=== PATIENT | male | born 1975 | race Caucasian/White ===

== ENCOUNTER 2017-10-24 14:27 | Emergency (ER) | payer OTHER ==
[2017-10-24 16:46] LABS: ADD MAN DIFF? NO
[2017-10-24 16:50] LABS: BASOPHIL # 0.1 10^3/ul (0.0-0.1); BASOPHILS % 0.6 % (0.0-2.0); EOSINOPHILS # 0.1 10^3/ul (0.0-0.5); EOSINOPHILS % 0.7 % (0.0-7.0); HEMATOCRIT 42.3 % (42.0-52.0); HEMOGLOBIN 14.6 g/dl (14.0-18.0); LYMPHOCYTES # 2.4 10^3/ul (0.8-2.9); LYMPHOCYTES % 27.2 % (15.0-51.0); MEAN CORPUSCULAR HEMOGLOBIN 29.4 pg (29.0-33.0); MEAN CORPUSCULAR HGB CONC 34.5 g/dl (32.0-37.0); MEAN CORPUSCULAR VOLUME 85.3 fl (82.0-101.0); MEAN PLATELET VOLUME 10.5 fl (7.4-10.4); MONOCYTE # 0.7 10^3/ul (0.3-0.9); MONOCYTES % 7.6 % (0.0-11.0); NEUTROPHIL # 5.5 10^3/ul (1.6-7.5); NEUTROPHILS % 63.7 % (39.0-77.0); PLATELET COUNT 228 10^3/UL (140-415); RED BLOOD COUNT 4.96 10^6/ul (4.70-6.10)
[2017-10-24 16:50] LABS: WHITE BLOOD COUNT 8.7 10^3/ul (4.8-10.8)
[2017-10-24 17:02] LABS: INR 0.95; PROTIME 12.8 Sec (11.9-14.9)
[2017-10-24 17:06] LABS: BLOOD UREA NITROGEN 13 mg/dl (7-20); CALCIUM 9.2 mg/dl (8.4-10.2); CARBON DIOXIDE 27 mmol/L (21-31); CHLORIDE 105 mmol/L (97-110); CREATININE 1.04 mg/dl (0.61-1.24); GLUCOSE 83 mg/dl (70-220); SODIUM 144 mmol/L (135-144)
[2017-10-24 17:45] LABS: TROPONIN-I < 0.012 ng/ml (0.00-0.12)
[2017-10-24 17:46] LABS: ANION GAP 16 (8-16)
[2017-10-24 17:47] LABS: POTASSIUM 3.7 mmol/L (3.5-5.1)
[2017-10-24] MEDS: IOHEXOL 100 ML (17:53)
[2017-10-24] MEDS: SOD CHLORIDE 0.9% 100 ML (17:53)
== END 2017-10-24 19:30 | disposition home or self-care (01) ==
LOC: E/R 14:27
DX: R07.2 Precordial pain (principal); R07.9 Chest pain, unspecified
CPT/HCPCS: 36415; 71045; 71275; 80048; 84484; 85025; 85610; 85730; 93005; 99285-25